=== PATIENT | male | born 1960 | race Caucasian/White ===

== ENCOUNTER 2017-04-26 05:50 | Inpatient (IN) ==
[2017-04-26] MEDS ORDERED: Thiamine (B-1) 100 MG in D5% in Water 50 ML IVPB STA (07:41)
[2017-04-26] MEDS ORDERED: Ringers Solution, Lactated 1,000 ML IVC ONE (07:41)
[2017-04-26] MEDS ORDERED: *HR* LORazepam 2 MG/ML VIAL IVP PRN ×6 (07:44→18:42)
[2017-04-26] MEDS ORDERED: diazePAM 10 MG/2 ML SYRINGE IVP PRN ×5 (07:44→12:14)
[2017-04-26] MEDS ORDERED: Dexmedetomidine HCl 400 MCG/100 ML MLS IVC SCH (07:45)
--- NOTE | 2017-04-26 08:04 | Pulmonology History & Physical ---
<Yong Rodgers W - Last Filed: 04/26/17 12:28> Date of Encounter: 04/26/17 History of Present Illness HPI: Mr. Waller is a 56 year old male Medications and Allergies LevETIRAcetam [Keppra] 1,500 mg PO QID 11/07/16 [History] Metoprolol [Lopressor] 25 mg PO DAILY 02/21/17 [History] Ibuprofen 800 mg PO TID PRN #15 tablet 02/22/17 [Rx] Allergies No Known Allergies Allergy (Verified 11/07/16 09:56) All Systems: A 10-system review of systems was performed and is negative for pertinent findings except as documented above in the HPI. Physical Examination Vital Signs: Vital Signs, Last 4 Hours Pulse Resp BP Pulse Ox 04/26/17 12:00 75 16 115/66 97 04/26/17 11:00 76 18 112/63 98 04/26/17 10:00 90 20 105/62 04/26/17 09:00 94 20 168/99 Results - Laboratory Findings CBC and BMP: 04/26/17 09:33 04/26/17 09:04 Abnormal lab findings: Abnormal lab results RBC 3.79 M/mcL (4.19-5.50) L 04/26/17 09:33 Hgb 12.4 g/dL (12.9-16.9) L D 04/26/17 09:33 Hct 35.9 % (37.5-50.1) L 04/26/17 09:33 MPV 8.6 fL (9.4-12.4) L 04/26/17 09:33 Sodium 133 mEq/L (136-145) L 04/26/17 09:04 Carbon Dioxide 18 mEq/L (19-29) L 04/26/17 09:04 BUN 6 mg/dL (8-26) L 04/26/17 09:04 Calculated Osmolality 273 (280-300) L 04/26/17 09:04 Calcium 7.5 mg/dL (8.6-10.8) L 04/26/17 09:04 AST 101 Units/L (5-34) H 04/26/17 09:04 Creatine Kinase 857 Units/L (30-200) H 04/26/17 09:04 - Attending Attestation I examined this patient and my medical decision-making was reviewed with the Resident Physician. I agree with the documented findings, disposition and treatment plan as described except to the extent set forth below. Patient seen and examined at bedside Labs, radiology, chart personally reviewed. Management was reviewed during multidisciplinary critical care rounds. Neuropsych: Acute ethanol withdrawal continue [facility] protocol start Precedex; presentation with tonic-clonic seizure with known history of seizure disorder since likely combination of ethanol toxicity and medication noncompliance we have reloaded his Keppra and will maintain this. Head CT stable, patient has been given vitamin replacement including thiamine Pulm: Good saturation on room air concern for underlying COPD current smoker Cards: ECG without evidence of STEMI troponin normal patient is not hypotensive continue to monitor FEN-GI: Advance diet after swallow evaluation; LFTs are elevated in a alcoholic pattern although clinical presentation is not consistent with acute alcoholic hepatitis Renal: Metabolic acidosis secondary to starvation ketoacidosis ethanol intoxication and mild lactic acidosis which is probably secondary to hypovolemia reassuringly acid based disorders are beginning to correct with fluid resuscitation ID: Patient is pancultured no clear evidence of infection continue to monitor Heme/Onc: DVT prophylaxis given Endo: Glucose monitor Integ/MSK: Skin care per routine ICU protocol to prevent ulcers CODE: Full <Alessandra Huerta - Last Filed: 04/26/17 15:57> Date of Encounter: 04/26/17 Time of Encounter: 08:01 Assessment and Plan (1) Alcoholism /alcohol abuse Current visit: Yes Status: Chronic Male patient states that he is a heavy liquor drinker. He states last night he walked outside and had a mechanical fall. He states he tripped over something in the yard and struck his head on a rock. He states that he did lose consciousness. He does not believe that he had a seizure. However documentation from [facility] is suggesting the patient was possibly postictal on arrival there. He has no trauma to his head and has not bit his tongue. I do not notice any gross deformities or any signs of trauma to his body on exam. He does have poor dentition. Patient does have a history of seizures and takes Keppra for this. He admittedly does not take the Keppra as prescribed. He states that he has no intention of quitting drinking. He is alert to person place and time at this time. He complains of a headache and left shoulder pain. His head was scanned with no acute abnormality noted however he does have a stable lobular sellar mass. He has full range of motion of his left shoulder with no acute abnormality noted on x-ray. We will place the patient on the [facility] protocol to prevent seizures from DTs. He states he has had seizures from withdrawing previously. Plan: Keppra [facility] protocol Thiamin 1 of LR Precedex Heparin for DVT prophylaxis Protonix for GI prophylaxis (2) Generalized seizure Current visit: Yes Status: Chronic Patient states that he is not compliant with his Keppra. He takes it periodically. His Keppra levels were drawn and found to be low. He was Keppra loaded at [place]. We will continue his dose of Keppra while he is here. (3) Ketoacidosis Current visit: Yes Status: Acute (4) Lactic acidosis Current visit: Yes Status: Resolved (5) Metabolic acidosis Current visit: Yes Status: Acute History of Present Illness HPI: Mr. Waller is a 56 year old male who is sent from [facility]. Patient presented there status post fall positive loss of consciousness after night of drinking. Patient is a self-admitted alcoholic. He states he drinks heavy amounts of liquor. He was in his front yard every felt struck his head on a rock. They did a CT head that was normal. 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 He also did x-ray of his left shoulder that showed no acute process. Patient complains of a headache and left shoulder pain. These are his only complaints this time. Patient self admits that he does not want to stop drinking. 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 He states he has double vision in the thigh. This is chronic for him. He states are no changes in his eye or his vision. He denies any pain in his eyes. His left pupil is equal and reactive to light and tracks well. Patient has full range of motion of all 4 extremities. He is mentating appropriately at this time. He states that he does have a history of seizures that he takes Keppra for. He is unsure the dose of this. He states he does miss several doses of this. Pt states his neurologist is here at [place] as well as he has one at [facility]. He was Keppra loaded at [place]. Past Med Surg Social Fam HX - Past Medical History Medical history: hyperlipidemia, hypertension, seizures Psychiatric history: anxiety, depression - Social History Smoking Status: Current every day smoker Smokeless Tobacco Status: No Alcohol use: heavy Drug use: methamphetamine All Systems: A 10-system review of systems was performed and is negative for pertinent findings except as documented above in the HPI. Physical Examination Vital Signs: Vital Signs, Last 4 Hours Temp Pulse Resp BP Pulse Ox 04/26/17 07:02 98.3 F 106 20 149/96 98 General appearance: no acute distress Eyes: nonicteric, other (Patient able to track well with his left eye. Does have a lazy right eye that is chronic. It deviates to the right. He wears an eye patch.) ENT: oropharynx moist Neck: supple Effort: normal Inspection: normal Auscultation: bilateral: clear Cardiovascular: regular rate and rhythm Gastrointestinal: normoactive bowel sounds, soft, non-tender, non-distended Integumentary: normal Extremities: no cyanosis, no edema, no clubbing, pink and warm, no ischemia or petechiae Musculoskeletal: no deformities non-focal exam, pupils equal and round, CN II-XII normal, motor strength normal and symmetric, other (Patient is alert and oriented 3. He is unaware of the events after his fall up until getting to the hospital.) mood appropriate, affect normal Results - Laboratory Findings CBC and BMP: 04/26/17 09:33 04/26/17 09:04
[2017-04-26] MEDS ORDERED: Vitamin B Complex/Vit C/Vit E 1 EACH TABLET PO SCH (09:00)
[2017-04-26] MEDS ORDERED: Thiamine (B-1) 100 MG TABLET PO SCH (09:00)
[2017-04-26] MEDS ORDERED: Folic Acid 1 MG TABLET PO SCH (09:00)
[2017-04-26 09:28] LABS: Alanine Aminotransferase 49 Units/L (0-55); Albumin 3.9 g/dL (3.5-5.0); Albumin/Globulin Ratio 1.2 (1.1-2.2); Alkaline Phosphatase 101 Units/L (38-126); Aspartate Amino Transferase 101 Units/L (5-34); BUN/Creatinine Ratio 8 (6-26); Bilirubin,Total 0.8 mg/dL (0.2-1.2); Blood Urea Nitrogen 6 mg/dL (8-26); Calcium 7.5 mg/dL (8.6-10.8); Carbon Dioxide 18 mEq/L (19-29); Chloride 101 mEq/L (98-109); Creatine Kinase 857 Units/L (30-200); Globulin 3.2 g/dL (2.4-3.5); Glucose 92 mg/dL (70-99); Osmolality,Calculated 273 (280-300); Potassium 3.6 mEq/L (3.5-4.5); Sodium 133 mEq/L (136-145); Total Protein 7.1 g/dL (6.0-8.3); eGFR For African Americans > 60 (> 60); eGFR For Non-African Americans > 60 (> 60)
[2017-04-26 09:43] LABS: Basophils % 0.5 %; Eosinophils % 0.2 %; Hematocrit 35.9 % (37.5-50.1); Hemoglobin 12.4 g/dL (12.9-16.9); Immature Granulocytes % 0.6 % (0-4); Immature Platelets 2.5 % (1.1-6.1); Lymphocytes # 1.1 K/mcL (0.6-4.6); Lymphocytes % 17.2 %; Mean Corpuscular HGB Conc 34.5 g/dL (31.6-35.5); Mean Corpuscular Hemoglobin 32.7 pg (28.0-33.3); Mean Corpuscular Volume 94.7 fL (83.0-100.0); Mean Platelet Volume 8.6 fL (9.4-12.4); Monocytes # 0.7 K/mcL (0.0-1.3); Monocytes % 11.1 %; Neutrophils # 4.5 K/mcL (1.6-8.9); Platelet Count 148 K/mcL (140-400); Red Blood Count 3.79 M/mcL (4.19-5.50); Red Cell Distribution Width 12.4 % (11.5-14.5); Segmented Neutrophils % 70.4 %
[2017-04-26] MEDS ORDERED: *HR* Dextrose 50 % in Water (Syg) 50 ML SYRINGE IVP PRN ×2 (12:13→18:42)
[2017-04-26] MEDS ORDERED: D5% in 0.45% NACL 1,000 ML IVC SCH (12:15)
[2017-04-26 16:24] LABS: Basophils % 0.5 %; Eosinophils % 0.8 %; Hematocrit 35.7 % (37.5-50.1); Hemoglobin 12.6 g/dL (12.9-16.9); Immature Granulocytes % 0.5 % (0-4); Lymphocytes # 1.1 K/mcL (0.6-4.6); Lymphocytes % 27.8 %; Mean Corpuscular HGB Conc 35.3 g/dL (31.6-35.5); Mean Corpuscular Hemoglobin 33.4 pg (28.0-33.3); Mean Corpuscular Volume 94.7 fL (83.0-100.0); Monocytes # 0.5 K/mcL (0.0-1.3); Monocytes % 13.6 %; Neutrophils # 2.3 K/mcL (1.6-8.9); Platelet Count 115 K/mcL (140-400); Red Blood Count 3.77 M/mcL (4.19-5.50); Red Cell Distribution Width 12.5 % (11.5-14.5); Segmented Neutrophils % 56.8 %
[2017-04-26] MEDS ORDERED: LEVETIRACETAM 1500 MG PO SCH (17:00)
[2017-04-26 17:37] LABS: BUN/Creatinine Ratio 11 (6-26); Blood Urea Nitrogen 7 mg/dL (8-26); Carbon Dioxide 23 mEq/L (19-29); Chloride 104 mEq/L (98-109); Glucose 100 mg/dL (70-99); Osmolality,Calculated 280 (280-300); Potassium 3.5 mEq/L (3.5-4.5); Sodium 136 mEq/L (136-145); eGFR For African Americans > 60 (> 60); eGFR For Non-African Americans > 60 (> 60)
[2017-04-26] MEDS ORDERED: *HR* Heparin 5,000 UNIT/ML VIAL SQ SCH (18:00)
[2017-04-26] MEDS ORDERED: levETIRAcetam 250 MG TABLET PO SCH (21:00)
[2017-04-26] MEDS: levETIRAcetam 250 MG TABLET PO SCH (21:50)
[2017-04-27] MEDS: traMADol 50 MG TABLET PO PRN ×2 (04:05→15:32)
[2017-04-27] MEDS: *HR* Heparin 5,000 UNIT/ML VIAL SQ SCH ×2 (05:06→18:03)
[2017-04-27] MEDS: Thiamine (B-1) 100 MG TABLET PO SCH (08:15)
[2017-04-27] MEDS: Vitamin B Complex/Vit C/Vit E 1 EACH TABLET PO SCH (08:15)
[2017-04-27] MEDS: levETIRAcetam 250 MG TABLET PO SCH ×2 (08:16→20:21)
[2017-04-27] MEDS: Folic Acid 1 MG TABLET PO SCH (08:16)
[2017-04-27 09:21] LABS: Basophils % 0.5 %; Eosinophils # 0.1 K/mcL (0.0-0.6); Eosinophils % 2.9 %; Immature Granulocytes % 0.8 % (0-4); Lymphocytes # 1.3 K/mcL (0.6-4.6); Lymphocytes % 34.9 %; Mean Corpuscular HGB Conc 34.1 g/dL (31.6-35.5); Mean Corpuscular Hemoglobin 32.7 pg (28.0-33.3); Mean Corpuscular Volume 95.8 fL (83.0-100.0); Mean Platelet Volume 9.1 fL (9.4-12.4); Monocytes # 0.4 K/mcL (0.0-1.3); Neutrophils # 1.9 K/mcL (1.6-8.9); Platelet Count 123 K/mcL (140-400); Red Blood Count 4.28 M/mcL (4.19-5.50); Red Cell Distribution Width 12.3 % (11.5-14.5); Segmented Neutrophils % 49.9 %
[2017-04-27 09:38] LABS: Alanine Aminotransferase 48 Units/L (0-55); Albumin 3.8 g/dL (3.5-5.0); Albumin/Globulin Ratio 1.2 (1.1-2.2); Alkaline Phosphatase 102 Units/L (38-126); Aspartate Amino Transferase 103 Units/L (5-34); BUN/Creatinine Ratio 11 (6-26); Bilirubin,Total 0.9 mg/dL (0.2-1.2); Blood Urea Nitrogen 7 mg/dL (8-26); Calcium 8.9 mg/dL (8.6-10.8); Carbon Dioxide 27 mEq/L (19-29); Chloride 101 mEq/L (98-109); Creatine Kinase 865 Units/L (30-200); Globulin 3.3 g/dL (2.4-3.5); Glucose 94 mg/dL (70-99); Osmolality,Calculated 282 (280-300); Potassium 3.3 mEq/L (3.5-4.5); Sodium 137 mEq/L (136-145); Total Protein 7.1 g/dL (6.0-8.3); eGFR For African Americans > 60 (> 60); eGFR For Non-African Americans > 60 (> 60)
--- NOTE | 2017-04-27 16:05 | Internal Med Progress Note ---
Date of Encounter: 04/27/17 Time of Encounter: 10:00 - Assessment and plan (1) Alcohol abuse Current Visit: Yes Status: Acute Assessment and plan: Patient drinks alcohol every day. Place patient on CIWA protocol, thiamine, folic acid. Closer monitor patient for withdrawal symptoms. Follow magnesium and phosphorous level (2) Seizure Current Visit: Yes Status: Acute Assessment and plan: Patient has history of brain tumor and resection surgeries. Has a history of seizure on Keppra by mouth. Patient is noncompliant with Keppra, level is low on admission. Patient was given IV Keppra loading dose and continue the by mouth Keppra. Seizure precaution. (3) Hypertension Current Visit: Yes Status: Acute Assessment and plan: Continue home medications. BP is stable Qualifiers: Hypertension type: essential hypertension Qualified Code(s): I10 - Essential (primary) hypertension (4) DVT prophylaxis Current Visit: Yes Status: Acute Assessment and plan: Heparin subcutaneously - Time Spent With Patient 25 - 35 minutes - Subjective Interval history: Patient is a 56-year-old male admitted for alcoholism, and seizure. His past medical history is significant for Alcohol abuse, brain tumor S/p craniotomy, seizure disorder, hypertension, hyperlipidemia, anxiety and depression. Patient was seen and examined. Patient said he feels fine, denies nausea, vomiting, diaphoresis, hand shaking. Complaining of left shoulder pain. Vitals are stable. Continue current treatment to prevent alcohol withdrawal and seizure. - Constitutional Vitals: Temp Pulse Resp BP Pulse Ox 98.4 F 107 16 135/92 98 04/27/17 15:26 04/27/17 15:26 04/27/17 15:26 04/27/17 15:26 04/27/17 15:26 General appearance: Present: A&O X 3, answers questions appropriately - Head Head exam: Present: atraumatic, normocephalic - Eye Eye exam: Present: PERRL, conjuntiva pink, sclera anicteric Pupils: Present: PERRL - Neck Neck exam general surgery: Present: supple, trachea midline. Absent: lymphadenopathy - Respiratory Respiratory exam: Present: CTAB. Absent: accessory muscle use, rales, rhonchi, wheezes - Cardiovascular Cardiovascular exam: Present: RRR, +S1, +S2. Absent: diastolic murmur, gallop, rubs, systolic murmur - GI/Abdominal GI/Abdominal exam: Present: normal bowel sounds, soft, no peritoneal signs. Absent: distended, tenderness - Extremities Exam Extremities exam: Present: warm, radial pulses palpable and symetrical. Absent : calf tenderness, cyanotic, pedal edema Additional comments: Left shoulder tenderness with limited ROM. - Neurological Exam Neurological exam: Present: CN II-XII intact, oriented X3, no focal deficits. Absent: pronater drift, facial droop, speech deficit - Skin Skin exam: Present: dry, intact Internal Medicine: Result - Labs CBC & Chem 7: 04/27/17 08:31 04/27/17 08:31 Labs: Short CBC 04/26/17 04/27/17 Range/Units 15:59 08:31 WBC 4.0 L 3.8 L (4.3-11.1) K/mcL Hgb 12.6 L 14.0 (12.9-16.9) g/dL Hct 35.7 L 41.0 (37.5-50.1) % Plt Count 115 L 123 L (140-400) K/mcL Neutrophils # 2.3 1.9 (1.6-8.9) K/mcL BMP 04/26/17 04/27/17 15:59 08:31 Sodium 136 137 Potassium 3.5 3.3 L Chloride 104 101 Carbon Dioxide 23 27 BUN 7 L 7 L Creatinine 0.66 L 0.65 L Glucose 100 H 94 Calcium 8.0 L 8.9 Liver Function 04/27/17 Range/Units 08:31 Total Bilirubin 0.9 (0.2-1.2) mg/dL AST 103 H (5-34) Units/L ALT 48 (0-55) Units/L Alkaline Phosphatase 102 (38-126) Units/L Albumin 3.8 (3.5-5.0) g/dL Consult Discharge Plan - Plan Referrals: NONE,PCP [Primary Care Provider] -
[2017-04-28] MEDS: traMADol 50 MG TABLET PO PRN ×2 (01:14→19:55)
[2017-04-28] MEDS: *HR* Heparin 5,000 UNIT/ML VIAL SQ SCH ×2 (05:34→17:32)
[2017-04-28 06:22] LABS: Basophils % 0.9 %; Eosinophils # 0.1 K/mcL (0.0-0.6); Eosinophils % 3.8 %; Hematocrit 39.7 % (37.5-50.1); Hemoglobin 13.9 g/dL (12.9-16.9); Immature Granulocytes % 0.6 % (0-4); Lymphocytes # 1.1 K/mcL (0.6-4.6); Lymphocytes % 31.6 %; Mean Corpuscular Hemoglobin 33.5 pg (28.0-33.3); Mean Corpuscular Volume 95.7 fL (83.0-100.0); Mean Platelet Volume 9.7 fL (9.4-12.4); Monocytes # 0.4 K/mcL (0.0-1.3); Monocytes % 12.7 %; Neutrophils # 1.7 K/mcL (1.6-8.9); Platelet Count 109 K/mcL (140-400); Red Blood Count 4.15 M/mcL (4.19-5.50); Red Cell Distribution Width 12.4 % (11.5-14.5); Segmented Neutrophils % 50.4 %
[2017-04-28 06:35] LABS: BUN/Creatinine Ratio 10 (6-26); Blood Urea Nitrogen 7 mg/dL (8-26); Calcium 9.4 mg/dL (8.6-10.8); Carbon Dioxide 28 mEq/L (19-29); Chloride 104 mEq/L (98-109); Glucose 94 mg/dL (70-99); Magnesium 2.4 mg/dL (1.6-2.6); Osmolality,Calculated 288 (280-300); Potassium 3.9 mEq/L (3.5-4.5); Sodium 140 mEq/L (136-145); eGFR For African Americans > 60 (> 60); eGFR For Non-African Americans > 60 (> 60)
[2017-04-28] MEDS: Thiamine (B-1) 100 MG TABLET PO SCH (07:27)
[2017-04-28] MEDS: Folic Acid 1 MG TABLET PO SCH (07:27)
[2017-04-28] MEDS: Vitamin B Complex/Vit C/Vit E 1 EACH TABLET PO SCH (07:27)
[2017-04-28] MEDS: levETIRAcetam 250 MG TABLET PO SCH ×2 (07:27→20:28)
--- NOTE | 2017-04-28 16:31 | Internal Med Progress Note ---
Date of Encounter: 04/28/17 Time of Encounter: 10:00 - Assessment and plan (1) Alcohol abuse Current Visit: Yes Status: Acute Assessment and plan: Patient drinks alcohol every day. Place patient on CIWA protocol, thiamine, folic acid. Closer monitor patient for withdrawal symptoms. Follow magnesium and phosphorous level. So far no withdraw symptoms. (2) Seizure Current Visit: Yes Status: Acute Assessment and plan: Patient has history of brain tumor and resection surgeries. Has a history of seizure on Keppra by mouth. Patient is noncompliant with Keppra, level is low on admission. Patient was given IV Keppra loading dose and continue the by mouth Keppra. Seizure precaution. (3) Hypertension Current Visit: Yes Status: Acute Assessment and plan: Continue home medications. BP is stable Qualifiers: Hypertension type: essential hypertension Qualified Code(s): I10 - Essential (primary) hypertension (4) DVT prophylaxis Current Visit: Yes Status: Acute Assessment and plan: Heparin subcutaneously - Subjective Interval history: Patient is a 56-year-old male admitted for alcoholism, and seizure. His past medical history is significant for Alcohol abuse, brain tumor S/p craniotomy, seizure disorder, hypertension, hyperlipidemia, anxiety and depression. Patient was seen and examined. Patient said he feels fine, denies nausea, vomiting, diaphoresis, hand shaking. No seizure. Vitals are stable. Continue current treatment to prevent alcohol withdrawal and seizure. - Constitutional Vitals: Temp Pulse Resp BP Pulse Ox 98.7 F 85 16 119/91 97 04/28/17 15:22 04/28/17 15:22 04/28/17 15:22 04/28/17 15:22 04/28/17 15:22 General appearance: Present: A&O X 3, answers questions appropriately - Head Head exam: Present: atraumatic, normocephalic - Eye Eye exam: Present: PERRL, conjuntiva pink, sclera anicteric Pupils: Present: PERRL - Neck Neck exam general surgery: Present: supple, trachea midline. Absent: lymphadenopathy - Respiratory Respiratory exam: Present: CTAB. Absent: accessory muscle use, rales, rhonchi, wheezes - Cardiovascular Cardiovascular exam: Present: RRR, +S1, +S2. Absent: diastolic murmur, gallop, rubs, systolic murmur - GI/Abdominal GI/Abdominal exam: Present: normal bowel sounds, soft, no peritoneal signs. Absent: distended, tenderness - Extremities Exam Extremities exam: Present: warm, radial pulses palpable and symetrical. Absent : calf tenderness, cyanotic, pedal edema - Neurological Exam Neurological exam: Present: CN II-XII intact, oriented X3, no focal deficits. Absent: pronater drift, facial droop, speech deficit - Skin Skin exam: Present: dry, intact Internal Medicine: Result - Labs CBC & Chem 7: 04/28/17 05:12 04/28/17 05:12 Labs: Short CBC 04/28/17 Range/Units 05:12 WBC 3.4 L (4.3-11.1) K/mcL Hgb 13.9 (12.9-16.9) g/dL Hct 39.7 (37.5-50.1) % Plt Count 109 L (140-400) K/mcL Neutrophils # 1.7 (1.6-8.9) K/mcL BMP 04/28/17 05:12 Sodium 140 Potassium 3.9 Chloride 104 Carbon Dioxide 28 BUN 7 L Creatinine 0.68 L Glucose 94 Calcium 9.4 - Impressions Impressions Shoulder X-Ray 04/27/17 16:05 IMPRESSION: No acute osseous abnormality of the left shoulder evident. D/ / Antonio Vaughn MD / Antonio Vaughn MD Interpreting Provider: Antonio Vaughn MD Consult Discharge Plan - Plan Referrals: NONE,PCP [Primary Care Provider] -
[2017-04-29] MEDS: *HR* Heparin 5,000 UNIT/ML VIAL SQ SCH (06:05)
[2017-04-29] MEDS: Folic Acid 1 MG TABLET PO SCH (07:29)
[2017-04-29] MEDS: Vitamin B Complex/Vit C/Vit E 1 EACH TABLET PO SCH (07:29)
[2017-04-29] MEDS: levETIRAcetam 250 MG TABLET PO SCH (07:29)
[2017-04-29] MEDS: Thiamine (B-1) 100 MG TABLET PO SCH (07:29)
[2017-04-29 08:09] VITALS: BP 166/106
--- NOTE | 2017-04-29 10:26 | Discharge Summary ---
Date of Encounter: 04/29/17 Time of Encounter: 09:00 - Discharge Diagnosis (1) Alcohol abuse Priority: Primary Status: Acute (2) Seizure Priority: Primary Status: Acute (3) Hypertension Priority: Secondary Status: Acute Qualifiers: Hypertension type: essential hypertension Qualified Code(s): I10 - Essential (primary) hypertension (4) DVT prophylaxis Priority: Secondary Status: Acute - Discharge Medications Home Medications: Lisinopril-HCTZ 10-12.5 [Prinzide 10-12.5] 2 each PO DAILY 04/26/17 [History] levETIRAcetam [Keppra Oral Soln] 1,500 mg PO BID 04/26/17 [History] Allergies/Adverse Reactions: Allergies No Known Allergies Allergy (Verified 11/07/16 09:56) Date of admission: 04/26/17 07:26 Primary care physician: PCP NONE Consults: 04/27/17 16:16 Consult to Physical Therapy [CONS] Routine Comment: Evaluate, develop and implement POC Reason for Consult: falls OT [Consult to Occupational Therapy] [CONS] Routine Comment: Evaluate, develop and implement POC Reason for Consult: falls Discharging clinician: Oscar Wan Anticipated date of discharge: 04/29/17 - Patient Status Disposition: Home, Self-Care Condition: Good Functional capacity at discharge: independent ambulation Overall status at discharge: patient is back to baseline - Discharge Instructions Instructions: Abuse of Alcohol (DC), Abuse of Alcohol (GEN), Chronic Hypertension (DC) Follow Up With: NONE,PCP [Primary Care Provider] - - Diet and Activity Activity: increase activity as tolerated Diet: advance to your usual diet Interval History: HPI: Mr. Waller is a 56 year old male who is sent from [facility]. Patient presented there status post fall positive loss of consciousness after night of drinking. Patient is a self-admitted alcoholic. He states he drinks heavy amounts of liquor. He was in his front yard every felt struck his head on a rock. They did a CT head that was normal. 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 He also did x-ray of his left shoulder that showed no acute process. Patient complains of a headache and left shoulder pain. These are his only complaints this time. Patient self admits that he does not want to stop drinking. 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 He states he has double vision in the thigh. This is chronic for him. He states are no changes in his eye or his vision. He denies any pain in his eyes. His left pupil is equal and reactive to light and tracks well. Patient has full range of motion of all 4 extremities. He is mentating appropriately at this time. He states that he does have a history of seizures that he takes Keppra for. He is unsure the dose of this. He states he does miss several doses of this. Pt states his neurologist is here at [place] as well as he has one at [facility]. He was Keppra loaded at [place]. Hospital course: Mr. Waller is a 56 year old male admitted for seizure and alcohol abuse. Patient was treated with Keppra loading dose plus maintenance. He was placed on CIWA protocol and closely monitor for 3 days. Patient has no signs of withdrawal. Vitals are stable. No further seizure. Stable to discharge home. Patient was seen and examined. He is awake alert, oriented 3. Vitals are stable. Patient will discharge home and continue home medication. Medication compliance education has been done bedside. Patient will follow-up with his PCP and neurology as outpatient. Alcohol detox referal was done. - Time Spent with Patient Total time spent providing and/or coordinating discharge services: 25 minutes Less than 30 minutes - Constitutional Vitals: Temp Pulse Resp BP Pulse Ox 97.4 F L 72 15 166/106 99 04/29/17 06:20 04/29/17 06:20 04/29/17 06:20 04/29/17 08:00 04/29/17 06:20 General appearance: Present: A&O X 3, answers questions appropriately - Head Head exam: Present: atraumatic, normocephalic - Eye Eye exam: Present: PERRL, conjuntiva pink, sclera anicteric Pupils: Present: PERRL - Neck Neck exam general surgery: Present: supple, trachea midline. Absent: lymphadenopathy - Respiratory Respiratory exam: Present: CTAB. Absent: accessory muscle use, rales, rhonchi, wheezes - Cardiovascular Cardiovascular exam: Present: RRR, +S1, +S2. Absent: diastolic murmur, gallop, rubs, systolic murmur - GI/Abdominal GI/Abdominal exam: Present: normal bowel sounds, soft, no peritoneal signs. Absent: distended, tenderness - Extremities Exam Extremities exam: Present: warm, radial pulses palpable and symetrical. Absent : calf tenderness, cyanotic, pedal edema - Neurological Exam Neurological exam: Present: CN II-XII intact, oriented X3, no focal deficits. Absent: pronater drift, facial droop, speech deficit - Skin Skin exam: Present: dry, intact
== END 2017-04-29 14:44 | disposition home or self-care (01) | DRG 101 ==
LOC: ICNU 07:26 → SUATTDRO 07:26 → 2NENU 19:41
PROVIDERS: ADMIT Internal Medicine; ATTEND Internal Medicine

== ENCOUNTER 2019-05-25 01:53 | Inpatient (IN) ==
[2019-05-25] MEDS ORDERED: Ondansetron 4 MG/2 ML VIAL IVP PRN (06:20)
[2019-05-25] MEDS ORDERED: Acetaminophen 325 MG TABLET PO PRN (06:20)
[2019-05-25] MEDS ORDERED: Naloxone 0.4 MG/ML INJ IVP PRN (06:20)
[2019-05-25] MEDS ORDERED: *HR* LORazepam 2 MG/ML VIAL IVP PRN (06:20)
--- NOTE | 2019-05-25 06:33 | Internal Med History&Physical ---
Date of Encounter: 05/25/19 Time of Encounter: 06:00 Internal Medicine - H&P: HPI Chief complaint: seizure Admitted From: Hospital to Hospital Transfer Plans for Post Hospital Care: Home History of present illness: Mr. Waller is a 58 year old male who presents in transfer from [facility] ER for recurrent seizures. He reportedly had 2 seizures at home and then 1 in the ER at [place]. Patient refused to come in for seizure but then his family dragged him in to the ER after his second seizure. He then had a third seizure in the ER at [place]. Patient reportedly is a heavy drinker of alcohol and has been alcohol free recently and appears to be withdrawing from alcohol. He was given some benzodiazepines and loaded with Keppra in the ER at [place] per my request. Transfer request was made from [place] ER to send patient to [facility] here. After his Keppra load, I accepted the patient in transfer. Upon my assessment of the patient, he appears be postictal but is arousable and answers questions appropriately. He is a poor historian, however. He admits to drinking alcohol but cannot confirm when his last alcoholic beverage was. He also reports noncompliance with his medication and has not taken his Keppra in several months. He denies any issues right now other than a little somnolence. I reviewed his labs from [place] and note that he had leukocytosis. I questioned him further whether he has had any fevers, shakes, chills, cough, congestion, vomiting, diarrhea, headache, neck ache, or backache. He denied all above except for occasional headache. He has no complaints presently other than being thirsty. Past Med Surg Social Fam HX - Past Medical History Attestation: Yes The following information was validated with the patient. Source: patient (limited), old records reviewed, other ([place] records) Medical history: hyperlipidemia, hypertension, seizures Additional medical history: Brain tumor Psychiatric history: anxiety, depression - Past Surgical History Surgical History: other (Craniotomy and mass excision) Additional surgical history: brain tumor, PARTIAL REMOVAL - Social History Smoking Status: Current every day smoker Smokeless Tobacco Status: No Alcohol use: heavy Drug use: methamphetamine Current living situation: Home, With Family Activity Level: Independent ambulation - Family History Mother History Unknown: Yes Father History Unknown: Yes Internal Medicine - H&P: Meds Lisinopril-HCTZ 10-12.5 [Prinzide 10-12.5] 2 each PO DAILY 04/26/17 [History] levETIRAcetam [Keppra Oral Soln] 1,500 mg PO BID 04/26/17 [History] Folic Acid 1 mg PO DAILY #30 tablet 04/29/17 [Rx] Thiamine (B-1) [Vitamin B-1] 100 mg PO DAILY #30 tablet 04/29/17 [Rx] Allergy/AdvReac Type Severity Reaction Status Date / Time No Known Allergies Allergy Verified 11/07/16 09:56 - Constitutional Constitutional: no chills, no fever(s), no night sweats - EENT Eyes: no blurry vision, no change in vision Ears: no ear pain, no tinnitus Nose, mouth and throat: no nasal congestion, no sinus pressure, no sore throat - Cardiovascular Cardiovascular ROS IM: no chest pain, no dyspnea, no dyspnea on exertion - Respiratory Respiratory: no cough, no dyspnea, no hemoptysis, no chest congestion, no excessive phlegm production, no change in phlegm color - Gastrointestinal Gastrointestinal: nausea, vomiting, no abdominal pain, no diarrhea, no hematemesis, no hematochezia - Genitourinary Genitourinary ROS male: no dysuria, no flank pain, no hematuria - Musculoskeletal Musculoskeletal ROS IM: no arthralgias, no back pain - Integumentary Integumentary IM: no rash, no jaundice - Neurological Neurological ROS: convulsions, headache(s) (occasional), no dizziness, no focal weakness, no frequent falls - Psychiatric Psychiatric: no anxiety, no depression - Endocrine Endocrine IM: no polydipsia, no polyphagia, no polyuria - Allergic/Immunologic Allergic/Immunologic: no GI upset with certain foods - Constitutional Vitals: Temp Pulse Resp BP Pulse Ox 97.8 F 101 19 153/94 96 05/25/19 05:51 05/25/19 05:51 05/25/19 05:51 05/25/19 05:51 05/25/19 05:51 General appearance: Present: A&O X 3, no acute distress, answers questions appropriately Exam: post-ictal but arousable and appropriate - Head Head exam: Present: atraumatic, normal inspection - Eye Eye exam: Present: EOMI, PERRL. Absent: scleral icterus Pupils: Present: normal accommodation - ENT ENT exam: Present: mucous membranes dry, normal exam, normal oropharynx - Neck Neck exam general surgery: Present: full ROM, supple, trachea midline. Absent: lymphadenopathy, tenderness, nuchal rigidity, thyromegaly - Respiratory Respiratory exam: Present: CTAB. Absent: chest wall tenderness, rales, rhonchi, wheezes - Cardiovascular Cardiovascular exam: Present: RRR, +S1, +S2. Absent: diastolic murmur, systolic murmur - GI/Abdominal GI/Abdominal exam: Present: normal bowel sounds, soft. Absent: guarding, hepatomegaly, mass, rebound, splenomegaly, tenderness - Extremities Exam Extremities exam: Present: full ROM, warm, radial pulses palpable and symmetrical. Absent: calf tenderness, joint swelling, pedal edema, tenderness - Back Exam Back exam: Present: normal inspection. Absent: CVA tenderness (L), CVA tenderness (R) - Neurological Exam Neurological exam: Present: alert, CN II-XII intact, oriented X3, no focal deficits, strengths equal and symetr throughout - Psychiatric Psychiatric exam: Present: flat affect - Skin Skin exam: Present: dry, intact, warm Additional comments: multiple scab wounds on legs and arms Internal Med - H&P Results - Labs Labs: I reviewed his labs from [place] and include the following: WBC 20.9 Hemoglobin 16.9 Hematocrit 46.7 Platelets 228 Sodium 133 Potassium 4.3 Chloride 96 Carbon dioxide 17 BUN 10 Creatinine 0.95 Glucose 141 Urine drug screen negative CT of the head -- no acute process, stable pituitary/suprasellar massunchanged from prior imaging study - Assessment and Plan (1) Seizure Current Visit: Yes Status: Acute Assessment and plan: 1. Keppra load given at [place]. 2. Resume Keppra per home dosing. 3. Will order Keppra level. 4. Consult Neurology. 5. Seizure precautions. 6. Will treat for alcohol withdrawal and follow CIKS protocol. (2) Alcohol dependence with withdrawal Current Visit: Yes Status: Acute Assessment and plan: 1. Follow CIWA protocol. 2. MVI, thiamine, folate per IVF. 3. Monitor glucose for possible hypoglycemia. Qualifiers: Complication of substance-induced condition: uncomplicated Qualified Code(s): F10.230 - Alcohol dependence with withdrawal, uncomplicated (3) Leukocytosis Current Visit: Yes Status: Acute Assessment and plan: 1. Likely due to demargination effect from seizure. 2. No sign of infection on exam. 3. Repeat labs, order blood cultures, order CXR. 4. Consider antibiotics if WBC climbs and/or patient develops signs/symptoms of systemic infection. Qualifiers: Leukocytosis type: unspecified Qualified Code(s): D72.829 - Elevated white blood cell count, unspecified (4) DVT prophylaxis Current Visit: Yes Status: Acute Assessment and plan: 1. Heparin SQ.
[2019-05-25 07:08] LABS: Basophils % 0.2 %; Eosinophils % 0.2 %; Hematocrit 44.3 % (37.5-50.1); Hemoglobin 15.8 g/dL (12.9-16.9); Lymphocytes # 0.5 K/mcL (0.6-4.6); Lymphocytes % 2.2 %; Mean Corpuscular HGB Conc 35.7 g/dL (31.6-35.5); Mean Corpuscular Hemoglobin 32.6 pg (28.0-33.3); Mean Corpuscular Volume 91.3 fL (83.0-100.0); Mean Platelet Volume 8.9 fL (9.4-12.4); Monocytes # 0.9 K/mcL (0.0-1.3); Monocytes % 4.3 %; Neutrophils # 20.1 K/mcL (1.6-8.9); Platelet Count 154 K/mcL (140-400); Red Blood Count 4.85 M/mcL (4.19-5.50); Red Cell Distribution Width 12.4 % (11.5-14.5); Segmented Neutrophils % 92.1 %; White Blood Count 21.8 K/mcL (4.3-11.1)
[2019-05-25 07:21] LABS: Prothrombin Time 11.6 Seconds (9.4-12.1)
[2019-05-25 07:24] LABS: Activated Partial Thrombo Time 29.7 Seconds (26.0-36.0)
[2019-05-25 07:27] LABS: Alanine Aminotransferase 43 Units/L (7-52); Albumin 4.5 g/dL (3.5-5.7); Albumin/Globulin Ratio 1.6 (1.1-2.2); Alkaline Phosphatase 120 Units/L (34-104); Aspartate Amino Transferase 63 Units/L (13-39); BUN/Creatinine Ratio 13 (6-26); Blood Urea Nitrogen 10 mg/dL (6-20); Calcium 8.4 mg/dL (8.6-10.3); Carbon Dioxide 18 mEq/L (23-29); Chloride 100 mEq/L (98-107); Globulin 2.8 g/dL (2.4-3.5); Glucose 93 mg/dL (70-105); Magnesium 2.4 mg/dL (1.6-2.6); Osmolality,Calculated 275 (280-300); Phosphorous 2.2 mg/dL (2.7-4.5); Potassium 3.9 mEq/L (3.5-5.1); Sodium 133 mEq/L (136-145); Total Protein 7.3 g/dL (6.4-8.9); eGFR For African Americans > 60 (> 60); eGFR For Non-African Americans > 60 (> 60)
[2019-05-25] MEDS: 0.9 % Sodium Chloride 1,000 ML IVC SCH ×2 (08:03→17:24)
--- NOTE | 2019-05-25 09:03 | Event Note ---
Date of Encounter: 05/25/19 Time of Encounter: 09:03 Patient seen and examined this morning at bedside. Admitted overnight due to seizures possibly related to noncompliance with his Keppra and component of alcohol withdrawal. Continue CIWA protocol, nutritional support and IV fluids. Leukocytosis likely reactive. Will monitor for other signs of infection. Taper Librium. Neurology consulted. Head CT was reviewed and did show pituitary/suprasellar lobular hyperdense mass. We will defer MRI until neurology evaluation.
[2019-05-25] MEDS ORDERED: Potassium Phosphate 44 MEQ in 0.9 % Sodium Chloride 250 ML IVPB ONE (15:44)
[2019-05-25] MEDS: Thiamine (B-1) 100 MG, Folic Acid 1 MG, MVI, adult with vitamin K 10 ML in 0.9 % Sodi... IVPB SCH (17:24)
[2019-05-25] MEDS: *HR* Heparin 5,000 UNIT/ML VIAL SQ SCH (17:25)
[2019-05-25] MEDS: levETIRAcetam 250 MG TABLET PO SCH (17:25)
[2019-05-26] MEDS: levETIRAcetam 250 MG TABLET PO SCH ×2 (05:20→17:57)
[2019-05-26] MEDS: *HR* Heparin 5,000 UNIT/ML VIAL SQ SCH ×2 (05:20→17:57)
[2019-05-26 05:48] LABS: Basophils % 0.5 %; Eosinophils % 0.6 %; Hematocrit 37.5 % (37.5-50.1); Immature Granulocytes % 0.3 % (0-4); Lymphocytes # 1.4 K/mcL (0.6-4.6); Lymphocytes % 20.7 %; Mean Corpuscular HGB Conc 35.5 g/dL (31.6-35.5); Mean Corpuscular Hemoglobin 32.6 pg (28.0-33.3); Mean Corpuscular Volume 91.9 fL (83.0-100.0); Mean Platelet Volume 8.7 fL (9.4-12.4); Monocytes # 0.4 K/mcL (0.0-1.3); Monocytes % 6.4 %; Neutrophils # 4.7 K/mcL (1.6-8.9); Platelet Count 107 K/mcL (140-400); Red Blood Count 4.08 M/mcL (4.19-5.50); Red Cell Distribution Width 12.5 % (11.5-14.5); Segmented Neutrophils % 71.5 %
[2019-05-26 05:49] LABS: Hemoglobin 13.3 g/dL (12.9-16.9); White Blood Count 6.5 K/mcL (4.3-11.1)
[2019-05-26 06:13] LABS: BUN/Creatinine Ratio 11 (6-26); Blood Urea Nitrogen 7 mg/dL (6-20); Calcium 8.1 mg/dL (8.6-10.3); Carbon Dioxide 23 mEq/L (23-29); Chloride 104 mEq/L (98-107); Glucose 123 mg/dL (70-105); Magnesium 2.2 mg/dL (1.6-2.6); Osmolality,Calculated 281 (280-300); Sodium 136 mEq/L (136-145); eGFR For African Americans > 60 (> 60); eGFR For Non-African Americans > 60 (> 60)
[2019-05-26] MEDS: *HR* HYDROcodone/Acet 5/325 mg TABLET PO PRN (08:18)
[2019-05-26] MEDS ORDERED: Gadolinium Contrast Agent (WT Based) IV PRN (08:56)
--- NOTE | 2019-05-26 08:58 | Neurology - Consult Note ---
<Kamari Rivera - Last Filed: 05/26/19 11:29> Date of Encounter: 05/26/19 Time of Encounter: 09:39 Assessment and Plan (1) Seizure Current Visit: Yes Status: Chronic - Acute on chronic - Patient reports a history of epilepsy following craniotomy, possibly before this - Home medications include Keppra however patient has not taken this for approximately 2 months - Etiology of breakthrough seizures likely noncompliance secondary to poor transportation with underlying alcohol abuse - Given the timeline, suspect this is more likely related to his Keppra less likely due to alcohol although patient is high risk for alcohol withdrawal seizures during this admission - Keppra loaded in [facility] emergency room Plan - Continue Keppra 1500 mg twice daily - Recommend continuing alcohol draw protocol. Patient is not actively demonstrating signs of withdrawal however given his very significant history, would continue both librium and CIWA - Continue alcohol withdrawal vitamins - Given his history of brain mass status post excision, will obtain MRI w/wo contrast of the head today - EEG - Recommend social work consult for noncompliance as well as medication refill difficulty (2) Alcohol abuse Current Visit: Yes Status: Acute As above History of Present Illness Chief complaint: Seizure HPI: Mr. Waller is a 58 year old male with a past medical history of seizures who presents to [facility] emergency department following a seizure at home. Patient reportedly had 2 seizures at home and one again in the [facility] emergency room. Patient states that he has had a history of epilepsy for approximately 7 years following a craniotomy for a benign brain tumor. Patient also states that he has had seizures before this. His home medications do include Keppra, but he states he has been out of this medication for approximately 1-2 months as his doctor is in [place] and he has had transportation problems. He states that he typically experiences a seizure approximately once per month with a typical postictal state involving confusion for what can last up to a day. He also does admit to loss of control of his bowel and bladder and past surgeries have noticed myoclonic jerking. Patient states he does not remember this most recent seizure, which is typical for him, and there is no family present at bedside. Patient does admit to tobacco and alcohol abuse. He states that he smokes between one half and one pack of cigarettes per day and drinks approximately 5 pints of 80 proof bourbon per week. He has not withdrawn from any alcohol to his recollection but does admit to occasional tremors. His last drink he believes to be on the day of his admission. He reports no other recent illnesses or symptoms. He is not having any fevers, chills, chest pains, difficulty breathing, cough. He did admit to one episode of loose bowel movements but otherwise has no concerns or complaints. I did ask about his diffuse excoriations covering his arms and he states that he has a lot of insects at his house which he scratches. In the [facility] emergency room, patient was Keppra loaded. He was started on his home dose of 1500 mg twice a day. He has not had a seizure since admission. Patient is alert and oriented 3 at time of my interview but does have difficulty recalling information due to his postictal state. 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 Denies illicit drug use Family history: Unknown Past Med Surg Social Fam HX - Past Medical History Medical history: hyperlipidemia, hypertension, seizures Additional medical history: Brain tumor Psychiatric history: anxiety, depression - Past Surgical History Surgical History: other (Craniotomy and mass excision) Additional surgical history: brain tumor, PARTIAL REMOVAL - Social History Smoking Status: Current every day smoker Smokeless Tobacco Status: No Alcohol use: heavy Drug use: methamphetamine - Family History Mother History Unknown: Yes Father History Unknown: Yes Medications and Allergies levETIRAcetam [Keppra Oral Soln] 1,500 mg PO BID 04/26/17 [History] Allergy/AdvReac Type Severity Reaction Status Date / Time No Known Allergies Allergy Verified 11/07/16 09:56 All Systems: The remainder of the systems were reviewed and are negative Review of Systems: - Constitutional: Denies fevers, chills, weight loss, generalized fatigue - Head/Neck: Denies MITCHELL, neck stiffness - EENT: Admits to chronic double vision in his right eye. Denies vision changes/blurriness, tinnitus, auditory changes, rhinorrhea, congestion, sore throat, - CVS: Denies chest pain, palpitations, CRUZ - Pulm: Denies SOB, cough, sputum, wheezing - GI: Admits to loose bowel movement. Denies abdominal pain, nausea, vomiting, melena - : Denies dysuria, increased frequency, urgency, hematuria, - MSK: Denies joint pain, limited ROM - Skin: Denies rashes, ulcers, color changes, - Neuro: Denies MITCHELL, paresthesias, focal deficits, ataxia, Physical Examination - Vital Signs Vital Signs: Initial Vital Signs Temp Pulse Resp BP Pulse Ox 97.8 F 101 19 153/94 96 05/25/19 05:51 05/25/19 05:51 05/25/19 05:51 05/25/19 05:51 05/25/19 05:51 - Constitutional General appearance: comfortable - Neurologic Sensorimotor examination: intact Detailed motor examination: grossly full strength in all extremities Motor examination - right side: 5: deltoids, biceps, triceps, photovoltaic installer, hip flexors, tibialis Anterior, quadriceps, toe extension (EHL), plantarflexion Motor examination - left side: 5: deltoids, biceps, triceps, hip flexors, photovoltaic installer, quadriceps, tibialis Anterior, toe extension (EHL), plantarflexion Detailed sensory examination: intact, light touch Reflex and gait examination: intact Reflexes: Biceps: 2+, Triceps: 2+, Patella: 2+ Mental Status Examination: awake, alert, oriented to person, oriented to place, oriented to time, follows commands appropriately, answers questions appropriately, no agnosia, no aphasia, no aproxia Cranial nerve examination: PERRL, sensory to face intact, mastication intact, no dysarthria, flexes SCM and trapezius muscles symmetrically with full power, tongue protrudes midline, no atrophy or facial fasiculations present Cranial Nerve Exam: pupil sluggish to react to light: Right, ptosis: Right Cerebellar examination: no dysmetria, performs finger to nose and heel to sweet symmetrically without ataxia, no gait ataxia Results - Laboratory Findings CBC and BMP: 05/26/19 05:35 05/26/19 05:35 Abnormal lab findings: Abnormal lab results WBC 21.8 K/mcL (4.3-11.1) H 05/25/19 06:54 RBC 4.08 M/mcL (4.19-5.50) L 05/26/19 05:35 MCHC 35.7 g/dL (31.6-35.5) H 05/25/19 06:54 Plt Count 107 K/mcL (140-400) L 05/26/19 05:35 MPV 8.7 fL (9.4-12.4) L 05/26/19 05:35 Neutrophils # 20.1 K/mcL (1.6-8.9) H 05/25/19 06:54 Lymphocytes # 0.5 K/mcL (0.6-4.6) L 05/25/19 06:54 Sodium 133 mEq/L (136-145) L 05/25/19 06:54 Potassium 3.0 mEq/L (3.5-5.1) L 05/26/19 05:35 Carbon Dioxide 18 mEq/L (23-29) L 05/25/19 06:54 Creatinine 0.66 mg/dL (0.70-1.30) L 05/26/19 05:35 Glucose 123 mg/dL (70-105) H 05/26/19 05:35 POC Glucose 109 mg/dL (70-99) H 05/25/19 15:50 Calculated Osmolality 275 (280-300) L 05/25/19 06:54 Calcium 8.1 mg/dL (8.6-10.3) L 05/26/19 05:35 Phosphorus 2.2 mg/dL (2.7-4.5) L 05/25/19 06:54 AST 63 Units/L (13-39) H 05/25/19 06:54 Alkaline Phosphatase 120 Units/L (34-104) H 05/25/19 06:54 Consult Discharge Plan - Plan Referrals: Margoth Renee, DO [Primary Care Provider] - <Willi Patterson I - Last Filed: 05/26/19 14:15> Date of Encounter: 05/26/19 Assessment and Plan (1) Seizure Current Visit: Yes Status: Chronic Pt was seen and examined, my medical decision was reviewed with the Resident Physician, I agree with the documented findings, disposition and treatment plan, as described except to the extent set forth below Suggest continue the current doses of Keppra will review the EEG for any abnormalities Willi Patterson MD History of Present Illness HPI: Mr. Waller is a 58 year old male All Systems: The remainder of the systems were reviewed and are negative Physical Examination - Vital Signs Vital Signs: Initial Vital Signs Temp Pulse Resp BP Pulse Ox 97.8 F 101 19 153/94 96 08/25/19 05:51 05/25/19 05:51 05/25/19 05:51 05/25/19 05:51 05/25/19 05:51 Results - Laboratory Findings CBC and BMP: 05/26/19 05:35 05/26/19 05:35 Abnormal lab findings: Abnormal lab results WBC 21.8 K/mcL (4.3-11.1) H 05/25/19 06:54 RBC 4.08 M/mcL (4.19-5.50) L 05/26/19 05:35 MCHC 35.7 g/dL (31.6-35.5) H 05/25/19 06:54 Plt Count 107 K/mcL (140-400) L 05/26/19 05:35 MPV 8.7 fL (9.4-12.4) L 05/26/19 05:35 Neutrophils # 20.1 K/mcL (1.6-8.9) H 05/25/19 06:54 Lymphocytes # 0.5 K/mcL (0.6-4.6) L 05/25/19 06:54 Sodium 133 mEq/L (136-145) L 05/25/19 06:54 Potassium 3.0 mEq/L (3.5-5.1) L 05/26/19 05:35 Carbon Dioxide 18 mEq/L (23-29) L 05/25/19 06:54 Creatinine 0.66 mg/dL (0.70-1.30) L 05/26/19 05:35 Glucose 123 mg/dL (70-105) H 05/26/19 05:35 POC Glucose 116 mg/dL (70-99) H 05/25/19 19:57 Calculated Osmolality 275 (280-300) L 05/25/19 06:54 Calcium 8.1 mg/dL (8.6-10.3) L 05/26/19 05:35 Phosphorus 2.2 mg/dL (2.7-4.5) L 05/25/19 06:54 AST 63 Units/L (13-39) H 05/25/19 06:54 Alkaline Phosphatase 120 Units/L (34-104) H 05/25/19 06:54
--- NOTE | 2019-05-26 09:00 | Electrocardiograph Report ---
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
--- NOTE | 2019-05-26 11:19 | Internal Med Progress Note ---
Hospitalist Progress Note - Encounter Date of Encounter: 05/26/19 Time of Encounter: 11:19 - Subjective Interval History: Patient seen and examined this morning he was. No acute overnight events. Denies new complaints. Did report diplopia for very long time due to right eye defect after his surgery. Denies any other weakness numbness. Feeling slightly better. Still with tremors. Denies any abdominal pain nausea vomiting or diarrhea. - Exam Vitals: Temp Pulse Resp BP Pulse Ox 97.7 F 64 16 114/74 95 05/26/19 11:06 05/26/19 11:06 05/26/19 11:06 05/26/19 11:06 05/26/19 11:06 Exam: General: In no acute distress. Respiratory exam: CTAB. no accessory muscle use, rales, rhonchi, wheezes Cardiovascular exam: RRR, +S1, +S2. no murmur, gallop, rubs. GI/Abdominal exam: Non-tender, Non-distended, normal bowel sounds, soft, no peritoneal signs. Extremities exam: no pedal edema, pulses palpable in b/l lower extremities. no calf tenderness. Has dupytrens contracture in b/l hands. Neurological exam: AO X3, Had Rt eye external deviation with diplopia which is not new. no other focal deficits. Tremors noted on extended hand. Skin exam: No worrisome skin rash. - Assessment and Plan (1) Seizure Current Visit: Yes Status: Chronic (2) DVT prophylaxis Current Visit: Yes Status: Acute (3) Alcohol dependence with withdrawal Current Visit: Yes Status: Inactive (4) Leukocytosis Current Visit: Yes Status: Acute - Summary of Assessment and Plan Summary of Assessment and Plan: Assessment Acute Seizure Alcohol withdrawal Reactive leukocytosis hypokalemia hypophosphatemia Chronic alcoholic h/o seizures. Plan - came with seizure. Was non compliant with his keppra. CT head showed p ituitary/suprasellar mass. will discuss with Neurology for need for MRI or any other acute intervention given diplopia. although he reports it for long time. - c/w keppra 1500 mg BID. Neurology consulted. Urine drug screen negative. c/w CIWA protocol with librium, MVI and nutritional support - leukocytosis resolved. Likely reactive. - heparin for DVT ppx. - Time Spent with Patient Total time spent is greater than 50% in coordination of care (as documented) at patient's floor/unit and/or counseling patient: Internal Medicine: Result - Labs CBC & Chem 7: 05/26/19 05:35 05/26/19 05:35 Labs: Short CBC 05/26/19 Range/Units 05:35 WBC 6.5 D (4.3-11.1) K/mcL Hgb 13.3 D (12.9-16.9) g/dL Hct 37.5 (37.5-50.1) % Plt Count 107 L (140-400) K/mcL Neutrophils # 4.7 (1.6-8.9) K/mcL BMP 05/26/19 05:35 Sodium 136 Potassium 3.0 L Chloride 104 Carbon Dioxide 23 BUN 7 Creatinine 0.66 L Glucose 123 H Calcium 8.1 L - ABG Interpretation ABG results: PT/INR, D-dimer PT 11.6 Seconds (9.4-12.1) 05/25/19 06:54 Consult Discharge Plan - Plan Referrals: Margoth Renee, [Primary Care Provider] - (3) Alcohol dependence with withdrawal Qualifiers: Complication of substance-induced condition: uncomplicated Qualified Code(s): F10.230 - Alcohol dependence with withdrawal, uncomplicated (4) Leukocytosis Qualifiers: Leukocytosis type: unspecified Qualified Code(s): D72.829 - Elevated white blood cell count, unspecified
[2019-05-26] MEDS ORDERED: *HR* LORazepam 2 MG/ML VIAL IVP PRN (12:43)
[2019-05-26 13:07] LABS: Prolactin 3.96 ng/mL (3.00-14.70)
--- NOTE | 2019-05-26 15:21 | Event Note ---
Date of Encounter: 05/26/19 Time of Encounter: 15:19 Reviewed MRI results with Dr. 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 Patient was demonstrating right lateral gaze palsy, myosis, and ptosis on exam. He was also complaining of diplopia for some time. We discussed with the primary team, Dr. Luna, that this lesion will likely require surgery at a tertiary center with neurosurgery. Patient had been reporting difficulty with transportation leading to his missed keppra doses. This presentation is not a medical emergency, but he should have evaluation in the near future. Recommend discussion with patient involving possibility of transfer to [facility] or [facility] prior to discharge to ensure follow up. Will discuss with patient and continue to follow.
--- NOTE | 2019-05-26 16:13 | EEG/EMG/Oth Biometrics Report ---
EEG Procedure Report EEG Procedure: Routine EEG Procedure Note: This is a routine 21 channel digital EEG performed utilizing 10- 20 international electrode placement system. FINDINGS: Patient has a predominant waking background frequency that is low in voltage voltage 8 to 10 Hertz alpha activity in the posterior region, low amplitude symmetrical over the both hemispheres reactive to eyes opening and closing, frontal leads showed evidence of excessive beta activity record continued to show alpha activity intermixed with some theta off and on, no abnormal activity recorded, predominantly no evidence of any spike wave discharges or any lateralizing abnormalities, Photic stimulation and hyperventilation did not produce any convulsive response. Intermittent EMG artifacts were noted. Stage II sleep was not achieved. Impression: Normal awake drowsy electroencephalogram. With the exception of beta activity which is a nonspecific pattern mostly seen with the use of benzos and denies abuse, No epileptiform discharges or any other paroxysmal activities noted. ( Please note that normal EEG does not exclude the diagnosis of seizures or epilepsy, clinical correlation is suggested)
[2019-05-26] MEDS: Thiamine (B-1) 100 MG, Folic Acid 1 MG, MVI, adult with vitamin K 10 ML in 0.9 % Sodi... IVPB SCH (17:57)
[2019-05-27] MEDS ORDERED: *HR* LORazepam 2 MG/ML VIAL IM ONE (01:41)
[2019-05-27] MEDS: *HR* LORazepam 2 MG/ML VIAL IVP PRN ×6 (04:04→18:38)
[2019-05-27] MEDS: levETIRAcetam 250 MG TABLET PO SCH ×2 (05:00→17:45)
[2019-05-27] MEDS: *HR* Heparin 5,000 UNIT/ML VIAL SQ SCH ×2 (05:01→17:46)
[2019-05-27 07:07] LABS: BUN/Creatinine Ratio 7 (6-26); Blood Urea Nitrogen 4 mg/dL (6-20); Calcium 8.9 mg/dL (8.6-10.3); Carbon Dioxide 26 mEq/L (23-29); Chloride 102 mEq/L (98-107); Glucose 110 mg/dL (70-105); Osmolality,Calculated 288 (280-300); Potassium 3.2 mEq/L (3.5-5.1); Sodium 140 mEq/L (136-145); eGFR For African Americans > 60 (> 60); eGFR For Non-African Americans > 60 (> 60)
[2019-05-27 07:21] LABS: Thyroid Stimulating Hormone 4.673 mcIU/mL (0.340-5.600)
[2019-05-27 07:48] LABS: Follicle Stimulating Hormone 8.54 mIU/mL (1.42-15.40)
[2019-05-27 07:49] LABS: Luteinizing Hormone 4.13 mIU/mL (1.24-7.80)
--- NOTE | 2019-05-27 08:44 | Neurology Progress Note ---
<Kamari Rivera - Last Filed: 05/27/19 09:26> Date of Encounter: 05/27/19 Time of Encounter: 09:26 Assessment and Plan (1) Seizure Current Visit: Yes Status: Chronic - Acute on chronic - Patient reports a history of epilepsy following craniotomy, possibly before this - Home medications include Keppra however patient has not taken this for approximately 2 months - Etiology of breakthrough seizures likely noncompliance secondary to poor transportation with underlying alcohol abuse - Given the timeline, suspect this is more likely related to his Keppra less likely due to alcohol although patient is high risk for alcohol withdrawal seizures during this admission - Keppra loaded in [place] emergency room - EEG yesterday shows grossly normal exam with no evidence of epileptiform activity. - MRI findings as below Plan - Continue Keppra 1500 mg twice daily - Recommend continuing alcohol draw protocol. 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 I discussed that this will likely need surgical intervention as he is having symptoms including ptosis, diplopia, lateral gaze abnormalities of the right eye. Patient states that he is willing to follow-up as an outpatient or transfer for further surgical evaluation. He does admit that it would be difficult to find a ride up to [place]. I did discuss this with the primary team and at this time we are recommending transfer to facility capable of neurosurgical care as this lesion may cause permanent damage if left untreated. (3) Alcohol abuse Current Visit: Yes Status: Acute As above Patient did require Ativan administration this morning Subjective Principal diagnosis: seizure, brain mass Interval history: Patient was seen and examined at bedside this morning. He states that overall he is doing well with no further concerns. Continues to deny any symptoms including fevers, chills, tremors, numbness, tingling. He admits to no changes position from yesterday. MRI yesterday did reveal a suprasellar mass measuring approximately 3 x 4 x 4. Patient has been evaluated previously at [facility]. We did discuss that given this mass which appears to be causing mass effect and causing his diplopia, ptosis he will likely need surgery in the near future. Patient is agreeable to this. He does admit to transportation issues and is unsure whether not he would be able to get back up to [place] for further follow-up. Objective - Constitutional Vitals: Temp Pulse Resp BP Pulse Ox 97.7 F 66 17 125/83 98 05/27/19 07:12 05/27/19 07:12 05/27/19 07:12 05/27/19 07:12 05/27/19 07:12 General appearance: Present: cooperative, A&O X 3, pleasant, no acute distress - Neurological Exam Sensorimotor examination: Present: intact Motor Examination: Present: grossly full strength in all extremities Motor examination - right side: 5/5: deltoids, biceps, triceps, pomology teacher, hip flexors, tibialis Anterior, quadriceps, toe extension (EHL), plantarflexion Motor examination - left side: 5/5: deltoids, biceps, triceps, hip flexors, pomology teacher, quadriceps, tibialis Anterior, toe extension (EHL), plantarflexion Sensation intact: Present: intact, light touch Reflex and gait examination: intact Reflexes: Triceps: 2+, Patella: 2+ Mental Status Examination: Present: awake, alert, oriented to person, oriented to place, oriented to time, follows commands appropriately, answers questions appropriately, no agnosia, no aphasia, no aproxia Cranial nerve examination: Present: sensory to face intact, mastication intact, no dysarthria, flexes SCM and trapezius muscles symmetrically with full power, tongue protrudes midline, no atrophy or facial fasiculations present Cranial Nerve Exam: pupil miotic: Right, pupil sluggish to react to light: Right, ptosis: Right Cerebellar examination: Present: no dysmetria, performs finger to nose and heel to sweet symmetrically without ataxia, no gait ataxia Results - Laboratory Findings CBC and BMP: 05/26/19 05:35 05/27/19 06:06 Abnormal lab findings: Abnormal lab results WBC 21.8 K/mcL (4.3-11.1) H 05/25/19 06:54 RBC 4.08 M/mcL (4.19-5.50) L 05/26/19 05:35 MCHC 35.7 g/dL (31.6-35.5) H 05/25/19 06:54 Plt Count 107 K/mcL (140-400) L 05/26/19 05:35 MPV 8.7 fL (9.4-12.4) L 05/26/19 05:35 Neutrophils # 20.1 K/mcL (1.6-8.9) H 05/25/19 06:54 Lymphocytes # 0.5 K/mcL (0.6-4.6) L 05/25/19 06:54 Sodium 133 mEq/L (136-145) L 05/25/19 06:54 Potassium 3.2 mEq/L (3.5-5.1) L 05/27/19 06:06 Carbon Dioxide 18 mEq/L (23-29) L 05/25/19 06:54 BUN 4 mg/dL (6-20) L 05/27/19 06:06 Creatinine 0.60 mg/dL (0.70-1.30) L 05/27/19 06:06 Glucose 110 mg/dL (70-105) H 05/27/19 06:06 POC Glucose 119 mg/dL (70-99) H 05/26/19 19:37 Calculated Osmolality 275 (280-300) L 05/25/19 06:54 Calcium 8.1 mg/dL (8.6-10.3) L 05/26/19 05:35 Phosphorus 2.2 mg/dL (2.7-4.5) L 05/25/19 06:54 AST 63 Units/L (13-39) H 05/25/19 06:54 Alkaline Phosphatase 120 Units/L (34-104) H 05/25/19 06:54 Consult Discharge Plan - Plan Referrals: Margoth Renee DO [Primary Care Provider] - <Willi Patterson I - Last Filed: 05/27/19 11:48> Date of Encounter: 05/27/19 Assessment and Plan (1) Seizure Current Visit: Yes Status: Chronic (2) Suprasellar mass Current Visit: Yes Status: Acute Pt was seen and examined, my medical decision was reviewed with the Resident Physician, I agree with the documented findings, disposition and treatment plan, as described except to the extent set forth below. MRI of the brain was reviewed he did have a large suprasellar mass seems to be extending to the cavernous sinus and also optic track. The large size of this mass patient would require neurosurgical evaluation he did have a previous surgery at [facility], is been has to having issues with transportation and not been able to see his primary care even to get prescription for his seizure medication at this time I would recommend that he should be evaluated at a tertiary care center , as he may benefit from neurosurgical evaluation and surgical resection of the mass, otherwise am afraid that if he did not seek any medical attention his mass may get larger and may cause more neurological issues including cavernous sinus thrombosis. Discussed with the primary team for possible transfer to a tertiary care center. Willi Patterson MD Objective - Constitutional Vitals: Temp Pulse Resp BP Pulse Ox 97.8 F 72 16 124/82 98 05/27/19 11:07 05/27/19 11:07 05/27/19 11:07 05/27/19 11:07 05/27/19 11:07 Results - Laboratory Findings CBC and BMP: 05/26/19 05:35 05/27/19 06:06 Abnormal lab findings: Abnormal lab results WBC 21.8 K/mcL (4.3-11.1) H 05/25/19 06:54 RBC 4.08 M/mcL (4.19-5.50) L 05/26/19 05:35 MCHC 35.7 g/dL (31.6-35.5) H 05/25/19 06:54 Plt Count 107 K/mcL (140-400) L 05/26/19 05:35 MPV 8.7 fL (9.4-12.4) L 05/26/19 05:35 Neutrophils # 20.1 K/mcL (1.6-8.9) H 05/25/19 06:54 Lymphocytes # 0.5 K/mcL (0.6-4.6) L 05/25/19 06:54 Sodium 133 mEq/L (136-145) L 05/25/19 06:54 Potassium 3.2 mEq/L (3.5-5.1) L 05/27/19 06:06 Carbon Dioxide 18 mEq/L (23-29) L 05/25/19 06:54 BUN 4 mg/dL (6-20) L 05/27/19 06:06 Creatinine 0.60 mg/dL (0.70-1.30) L 05/27/19 06:06 Glucose 110 mg/dL (70-105) H 05/27/19 06:06 POC Glucose 119 mg/dL (70-99) H 05/26/19 19:37 Calculated Osmolality 275 (280-300) L 05/25/19 06:54 Calcium 8.1 mg/dL (8.6-10.3) L 05/26/19 05:35 Phosphorus 2.2 mg/dL (2.7-4.5) L 05/25/19 06:54 AST 63 Units/L (13-39) H 05/25/19 06:54 Alkaline Phosphatase 120 Units/L (34-104) H 05/25/19 06:54
--- NOTE | 2019-05-27 10:33 | Internal Med Progress Note ---
Hospitalist Progress Note - Encounter Date of Encounter: 05/27/19 Time of Encounter: 10:33 - Subjective Interval History: Section sheen and examined this morning at bedside. No acute overnight events. Denies new complaints. He received Ativan this morning. No fevers chills nausea vomiting or diarrhea. - Exam Vitals: Temp Pulse Resp BP Pulse Ox 97.7 F 66 17 125/83 98 05/27/19 07:12 05/27/19 07:12 05/27/19 07:12 05/27/19 07:12 05/27/19 08:53 Exam: General: In no acute distress. Respiratory exam: CTAB. no accessory muscle use, rales, rhonchi, wheezes Cardiovascular exam: RRR, +S1, +S2. no murmur, gallop, rubs. GI/Abdominal exam: Non-tender, Non-distended, normal bowel sounds, soft, no peritoneal signs. Extremities exam: no pedal edema, pulses palpable in b/l lower extremities. no calf tenderness. Has dupytrens contracture in b/l hands. Neurological exam: AO X3, Had Rt eye external deviation with diplopia on lateral gaze, which he says is not new. no other focal deficits. Tremors noted on extended hand. Skin exam: No worrisome skin rash. - Assessment and Plan (1) Seizure Current Visit: Yes Status: Chronic (2) DVT prophylaxis Current Visit: Yes Status: Acute (3) Alcohol dependence with withdrawal Current Visit: Yes Status: Inactive (4) Leukocytosis Current Visit: Yes Status: Acute - Summary of Assessment and Plan Summary of Assessment and Plan: Assessment Acute Seizure Alcohol withdrawal Reactive leukocytosis hypokalemia hypophosphatemia Brain mass Chronic alcoholic h/o seizures. Plan - came with seizure. Was non compliant with his keppra. CT head showed pi tuitary/suprasellar mass. MRI with large extra-axial mass near rt cavernous sinus. Large pendunculated macroadenoma vs meningeoma suspected. He does have visual symptoms including diplopia. although he reports it for long time. Mass seems to be non functioning with normal prolactin, cortisonl, LH, FSH, TSH. Discussed extensively with patient about need for neurosurgical intervention sooner than later to prevent permanent damage. Discussed need to transfer to [facility] where he had a previous surgery. Exact previous pathology unknown. 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 oTmasa ghosh does seem to understand the risk involved and not addressing the mass including uncontrollable seizure and loss of vision, however he tells me his farm issue needs to be taken care before he can go to [place]. We will discuss with social welfare administrator about possible options. Patient was provided phone to contact to see if he can address this while in hospital. - c/w keppra 1500 mg BID. Neurology consulted. Appreciate recommendations. Urine drug screen negative. c/w CIWA protocol with librium, MVI and nutritional support. Advance diet as tolerated. - leukocytosis resolved. Likely reactive. - heparin for DVT ppx. - Time Spent with Patient Total time spent is greater than 50% in coordination of care (as documented) at patient's floor/unit and/or counseling patient: Internal Medicine: Result - Labs CBC & Chem 7: 05/26/19 05:35 05/27/19 06:06 Labs: BMP 05/26/19 05/27/19 05:35 06:06 Sodium 136 140 Potassium 3.0 L 3.2 L Chloride 104 102 Carbon Dioxide 23 26 BUN 7 4 L Creatinine 0.66 L 0.60 L Glucose 123 H 110 H Calcium 8.1 L 8.9 - ABG Interpretation ABG results: PT/INR, D-dimer PT 11.6 Seconds (9.4-12.1) 05/25/19 06:54 - Impressions Impressions Brain MRI 05/26/19 08:56 IMPRESSION: Large extra-axial mass with the epicenter near the right cavernous sinus with involvement of the sella and right middle cranial fossa. 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 Meningioma is in the differential diagnosis. Right frontal craniotomy changes. Mild chronic microvascular disease within the periventricular white matter. D/ / 05/26/2019 14:10:09 Khris Sage MD / leticia Interpreting Provider: Khris Sage MD Consult Discharge Plan - Plan Referrals: Margoth Renee DO [Primary Care Provider] - (3) Alcohol dependence with withdrawal Qualifiers: Complication of substance-induced condition: uncomplicated Qualified Code(s): F10.230 - Alcohol dependence with withdrawal, uncomplicated (4) Leukocytosis Qualifiers: Leukocytosis type: unspecified Qualified Code(s): D72.829 - Elevated white blood cell count, unspecified
[2019-05-27] MEDS: Thiamine (B-1) 100 MG, Folic Acid 1 MG, MVI, adult with vitamin K 10 ML in 0.9 % Sodi... IVPB SCH (17:46)
[2019-05-27] MEDS: *HR* HYDROcodone/Acet 5/325 mg TABLET PO PRN (17:46)
[2019-05-27] MEDS: Nicotine 14 MG PATCH.TD24 TD SCH (18:56)
[2019-05-28] MEDS: levETIRAcetam 250 MG TABLET PO SCH ×2 (05:08→16:54)
[2019-05-28] MEDS: *HR* Heparin 5,000 UNIT/ML VIAL SQ SCH ×2 (05:09→16:53)
[2019-05-28 06:50] LABS: BUN/Creatinine Ratio 7 (6-26); Blood Urea Nitrogen 4 mg/dL (6-20); Calcium 9.3 mg/dL (8.6-10.3); Carbon Dioxide 28 mEq/L (23-29); Chloride 106 mEq/L (98-107); Glucose 103 mg/dL (70-105); Osmolality,Calculated 293 (280-300); Potassium 3.3 mEq/L (3.5-5.1); Sodium 143 mEq/L (136-145); eGFR For African Americans > 60 (> 60); eGFR For Non-African Americans > 60 (> 60)
[2019-05-28] MEDS: Thiamine (B-1) 100 MG TABLET PO SCH (09:30)
[2019-05-28] MEDS: Folic Acid 1 MG TABLET PO SCH (09:30)
[2019-05-28] MEDS: Nicotine 14 MG PATCH.TD24 TD SCH (09:31)
--- NOTE | 2019-05-28 13:38 | Discharge Summary ---
- NOTES TO OUTPATIENT PROVIDER Notes to Outpatient Provider: Patient was hospitalized after an episode of seizure. Patient has history of alcohol abuse. Patient has a history of brain mass with status post resection approximately 6-7 years ago. Patient found to have suprasellar mass on MRI at this hospitalization which is nonfunctioning pituitary adenoma versus meningioma. Neurologic consult was placed. Recommended neurosurgical intervention. Patient was transferred to [facility] per patient's sister request. Orders not resulted at time of discharge: Pending orders 05/25/19 06:54 Culture,Blood [BC] Stat 05/27/19 06:06 ACTH AM 0400 IGF-1 with calculated Z-Score Routine Date of Encounter: 05/28/19 Time of Encounter: 13:35 - Discharge Diagnosis (1) Suprasellar mass Priority: Primary Status: Acute (2) Seizure Priority: Secondary Status: Chronic (3) DVT prophylaxis Priority: Secondary Status: Acute (4) Alcohol dependence with withdrawal Priority: Primary Status: Inactive Qualifiers: Complication of substance-induced condition: uncomplicated Qualified Code(s): F10.230 - Alcohol dependence with withdrawal, uncomplicated (5) Leukocytosis Priority: Secondary Status: Acute Qualifiers: Leukocytosis type: unspecified Qualified Code(s): D72.829 - Elevated white blood cell count, unspecified Hospital course: Mr. Waller is a 58 year old male was presented to the hospital after an episode of seizure. Patient has a history of alcohol abuse and patient is status post cerebral muscle resection 6-7 years ago. Patient had a suprasellar mass on MRI at this hospitalization. Neurologic consult was placed. Advised transfer patient for neurosurgery recommendations. I spoke with patient's sister, who is a physician at [facility]. She requested patient to be transferred over there. Spoke to the transfer center. Spoke to Dr. Kelly at [facility]. She has accepted the patient. Patient will be transferred for further management at the [facility]. Discharge discussed with: patient - Time Spent with Patient Total time spent providing and/or coordinating discharge services: 45 Time spent: Greater than 30 minutes - Discharge Medications Prescriptions: New Nicotine Patch [Nicoderm] 14 mg TD DAILY [id number] Acetaminophen [Tylenol] 650 mg PO Q6HR PRN tablet PRN Reason: Mild Pain/Fever Chlordiazepoxide [Librium] 10 mg PO TID capsule LORazepam [Ativan] 4 mg IVP Q4HR PRN vial PRN Reason: CIWA Score of 22-45 LORazepam [Ativan] 2 mg IVP Q4HR PRN vial PRN Reason: CIWA Score of 10-21 LORazepam [Ativan] 1 mg IVP Q1H PRN vial PRN Reason: Alcohol Withdrawal Folic Acid 1 mg PO DAILY tablet Thiamine (B-1) [Vitamin B-1] 100 mg PO DAILY tablet Continued levETIRAcetam [Keppra Oral Soln] 1,500 mg PO BID Home Medications: levETIRAcetam [Keppra Oral Soln] 1,500 mg PO BID 04/26/17 [History] Acetaminophen [Tylenol] 650 mg PO Q6HR PRN tablet 05/28/19 [Rx] Chlordiazepoxide [Librium] 10 mg PO TID capsule 05/28/19 [Rx] Folic Acid 1 mg PO DAILY tablet 05/28/19 [Rx] LORazepam [Ativan] 1 mg IVP Q1H PRN vial 05/28/19 [Rx] LORazepam [Ativan] 2 mg IVP Q4HR PRN vial 05/28/19 [Rx] LORazepam [Ativan] 4 mg IVP Q4HR PRN vial 05/28/19 [Rx] Nicotine Patch [Nicoderm] 14 mg TD DAILY patch.[id number] 05/28/19 [Rx] Thiamine (B-1) [Vitamin B-1] 100 mg PO DAILY tablet 05/28/19 [Rx] Allergies/Adverse Reactions: Allergy/AdvReac Type Severity Reaction Status Date / Time No Known Allergies Allergy Verified 11/07/16 09:56 Date of admission: 05/28/19 09:43 Primary care physician: Margoth Renee DO Consults: 05/25/19 06:20 Consult to Watch Supervisor [CONS] Routine Reason for SW Consult: medication non-compliance 05/25/19 06:24 Consult to Neurology [CONS] Routine Consulting Provider: [facility] Reason for Consult: seizures; non-compliance [facility] Call Completed: No 05/26/19 16:02 Consult to Interpret Exam [CONS] Routine Consulting Provider: Willi Patterson I Consult to Interpret Exam: Interpret EEG Discharging clinician: Sb R Luna - Constitutional Vitals: Temp Pulse Resp BP Pulse Ox 97.8 F 75 20 115/76 96 05/28/19 11:38 05/28/19 11:38 05/28/19 11:38 05/28/19 11:38 05/28/19 11:38 General appearance: Present: cooperative, A&O X 3, no acute distress, answers questions appropriately Exam: General: A & O 3, In no acute distress HENNT: Right-sided mitotic pupils. Right ptosis. CVS S1 and S2 regular, no murmur RS: Clear to air entry bilaterally, no wheeze, no crackles Abdomen: Soft and nontender. Bowel sounds normal 4 Extremities: No cyanosis, clubbing, and edema Neurology: Cranial 2 through 12 normal. Motor strength 5/5 bilaterally. Sensation intact - Patient Status Disposition: Transfer Short-Term Hosp Condition: Good Overall status at discharge: patient is progressing back to baseline - Discharge Instructions Follow Up With: Margoth Renee, [Primary Care Provider] - - Diet and Activity Diet: advance to your usual diet
[2019-05-28] MEDS: *HR* HYDROcodone/Acet 5/325 mg TABLET PO PRN (16:54)
[2019-05-29] MEDS: levETIRAcetam 250 MG TABLET PO SCH ×2 (05:12→17:07)
[2019-05-29] MEDS: *HR* Heparin 5,000 UNIT/ML VIAL SQ SCH ×2 (05:12→17:07)
[2019-05-29] MEDS: Folic Acid 1 MG TABLET PO SCH (08:25)
[2019-05-29] MEDS: Thiamine (B-1) 100 MG TABLET PO SCH (08:25)
[2019-05-29] MEDS: Nicotine 14 MG PATCH.TD24 TD SCH (08:26)
--- NOTE | 2019-05-29 08:51 | Event Note ---
Date of Encounter: 05/29/19 Time of Encounter: 08:49 Patient was examined and at bed side today. Patient denied any acute issues. Patient will be transferred to [facility] for suprasellar mass. Patient's transfer was arranged yesterday. Currently we are waiting on getting call from [facility] to provide us with bed number. Pt has been accepted by Neurosurgeon Dr. Kelly over at [facility].
[2019-05-29 09:43] LABS: IGF-1 Z-Score Calculation -4.6
[2019-05-29] MEDS: *HR* HYDROcodone/Acet 5/325 mg TABLET PO PRN ×2 (12:47→20:05)
[2019-05-30] MEDS: levETIRAcetam 250 MG TABLET PO SCH (06:33)
[2019-05-30] MEDS: *HR* HYDROcodone/Acet 5/325 mg TABLET PO PRN (06:33)
[2019-05-30] MEDS: *HR* Heparin 5,000 UNIT/ML VIAL SQ SCH (06:33)
[2019-05-30 06:56] VITALS: BP 126/86
[2019-05-30] MEDS: Thiamine (B-1) 100 MG TABLET PO SCH (08:22)
[2019-05-30] MEDS: Folic Acid 1 MG TABLET PO SCH (08:22)
[2019-05-30] MEDS: Nicotine 14 MG PATCH.TD24 TD SCH (08:22)
== END 2019-05-30 10:00 | disposition short-term general hospital (02) | DRG 101 ==
LOC: 2ANU → SUATTDRO 05:25 → 2ANU 05-27 17:54
PROVIDERS: ADMIT Pediatrics; ATTEND Family Medicine